=== PATIENT | male | born 1990 | race Two or more races ===

== ENCOUNTER 2018-10-12 20:42 | Emergency (ER) | payer MEDICAID ==
[~2018-10-12] VITALS: Ht 185.4 cm; Wt 107.0 kg
--- NOTE | 2018-10-12 21:49 | NUR ---
the patient was placed to ER 09; monitored
[2018-10-12] MEDS ORDERED: IBUPROFEN 600 MG TABLET PO ONE ×2 (22:30→22:56)
[2018-10-12] MEDS ORDERED: HYDROCODONE/APAP 5/325MG 1 EACH TABLET PO ONE (22:30)
[2018-10-12] MEDS ORDERED: HYDROCODONE/APAP 5/325MG 1 EACH TABLET ONE (22:56)
--- NOTE | 2018-10-12 23:02 | NUR ---
pain meds givne as ordered
--- NOTE | 2018-10-13 00:02 | NUR ---
Patient discharged to home in stable condition. Written and verbal after care instructions given. Patient verbalizes understanding of instruction.
[2018-10-13 00:03] VITALS: BP 126/52
== END 2018-10-13 00:04 | disposition home or self-care (01) ==
LOC: ER 20:49
DX: S20.211A Contusion of right front wall of thorax, initial encounter (principal); W10.8XXA Fall (on) (from) other stairs and steps, initial encounter; Y93.89 Activity, other specified; Y92.89 Other specified places as the place of occurrence of the external cause; Y99.8 Other external cause status
CPT/HCPCS: 71045-TC

== ENCOUNTER 2023-07-07 01:18 | Emergency (ER) | payer MEDICAID ==
[~2023-07-07] VITALS: Ht 185.4 cm; Wt 108.9 kg
[2023-07-07 01:41] VITALS: BP 131/82; TEMP 98.1; O2SAT 98
[2023-07-07] MEDS ORDERED: MUPI22OI2 TP (02:14)
[2023-07-07] MEDS ORDERED: DOXY100T2 PO (02:14)
[2023-07-07] MEDS ORDERED: TRIA80OI TP (02:14)
[2023-07-07] MEDS ORDERED: MOXI400T31 PO (02:14)
== END 2023-07-07 02:22 | disposition home or self-care (01) ==
LOC: ER 01:21
DX: N47.1 Phimosis (principal)

== ENCOUNTER 2024-01-20 09:55 | Emergency (ER) | payer MEDICAID ==
[~2024-01-20] VITALS: Ht 185.4 cm; Wt 113.4 kg
[~2024-01-20 09:55] MED LIST: DOXY100T2 PO; MOXI400T31 PO; MUPI22OI2 TP; TRIA80OI TP
[2024-01-20 10:42] VITALS: BP 125/79; TEMP 97.8
[2024-01-20] MEDS ORDERED: ERYT3.5O9 EACHEYE (10:51)
[2024-01-20 10:56] VITALS: O2SAT 98
== END 2024-01-20 10:57 | disposition home or self-care (01) ==
LOC: ER 09:55
DX: B30.9 Viral conjunctivitis, unspecified (principal)